=== PATIENT | male | born 1990 | race American Indian/Alaskan Native ===

== ENCOUNTER 2017-11-26 07:02 | Outpatient (CLI) | payer MEDICAID ==
--- NOTE | 2017-11-26 07:54 | Ultrasound Report ---
ULTRASOUND ABDOMEN LIMITED: TECHNIQUE: Transabdominal ultrasound with color Doppler interrogation. HISTORY: Liver function tests abnormal. COMPARISON: none. FINDINGS: LIVER: Normal. BILIARY SYSTEM: A small amount of layering sludge is identified in the gallbladder. No evidence for shadowing gallstones, wall thickening, pericholecystic fluid or abnormal dilatation. The CBD measures 3 mm. PANCREAS: Normal. RIGHT KIDNEY: Normal. PROXIMAL AORTA: Normal. ASCITES: None. IMPRESSION: Small amount of sludge in the gallbladder. No gallstones or signs of acute cholecystitis.
== END 2017-11-26 07:03 | disposition home or self-care (01) ==
LOC: US 07:02
PROVIDERS: ATTEND Family Medicine
DX: R94.5 Abnormal results of liver function studies (principal)
CPT/HCPCS: 76705